=== PATIENT | female | born 1975 | race Asian ===

== ENCOUNTER 2022-07-11 15:30 | Emergency (ER) | payer OTHER ==
[~2022-07-11] VITALS: Ht 154.9 cm; Wt 48.1 kg
[2022-07-11 16:02] VITALS: BP 128/89
[2022-07-11] MEDS ORDERED: IBUPROFEN 600 MG TAB PO ONE (18:10)
[2022-07-11] MEDS ORDERED: IBUP-2213 PO (18:32)
== END 2022-07-11 18:37 | disposition home or self-care (01) ==
LOC: MED 15:30
DX: S63.617A Unspecified sprain of left little finger, initial encounter (principal); R03.0 Elevated blood-pressure reading, without diagnosis of hypertension; Z79.1 Long term (current) use of non-steroidal anti-inflammatories (NSAID); W01.0XXA Fall on same level from slipping, tripping and stumbling without subsequent striking against object, initial encounter; Y92.89 Other specified places as the place of occurrence of the external cause; Y93.89 Activity, other specified; Y99.8 Other external cause status
CPT/HCPCS: 73140; 99283